=== PATIENT | male | born 1970 | race Caucasian/White ===

== ENCOUNTER 2022-10-15 15:20 | Outpatient (CLI) | payer OTHER, SELFPAY ==
--- NOTE | ~2022-10-15 | XR_ITS ---
XR chest 2V DATE: 10/15/2022 15:34 INDICATION: Cough for 3 weeks TECHNIQUE: PA and lateral views COMPARISON: 09/13/2019 PA and lateral chest FINDINGS: Normal heart size. No hilar or mediastinal enlargement. Stable probable small calcified gra nulomas, right lower lung, unchanged since 09/13/2019. No pulmonary infiltrate or consolidation, pleu ral effusion or pulmonary vascular congestion or pneumothorax. Included skeletal structures are unrem arkable. IMPRESSION: No active cardiopulmonary disease Reviewed, dictated and finalized at location [facility]. [facility]/MEDICAL [employer]PRETER
== END 2022-10-15 15:21 | disposition home or self-care (01) ==
LOC: ANHIMG 15:23
PROVIDERS: PCP Family Medicine; Visit Provider Nurse Practitioner Family
DX: R05.9 Cough, unspecified (principal)
CPT/HCPCS: 71046

== ENCOUNTER 2023-06-26 14:27 | Outpatient (CLI) | payer OTHER, SELFPAY ==
[2023-06-26 14:53] LABS: Uric Acid 7.3 mg/dL (3.5-8.5)
== END 2023-06-26 14:28 | disposition home or self-care (01) ==
PROVIDERS: PCP Family Medicine; Visit Provider Nurse Practitioner Family
DX: M25.50 Pain in unspecified joint (principal)
CPT/HCPCS: 36415; 84550